=== PATIENT | male | born 1955 | race Caucasian/White ===

== ENCOUNTER 2017-12-07 08:44 | Observation (INO) | payer OTHER ==
[2017-12-05 11:25] VITALS: BP 144/83
[2017-12-05 11:29] LABS: BASOPHILS % (AUTO) 0.9 % (0.0-5.0); EOSINOPHILS % (AUTO) 2.7 % (0.0-8.0); HEMATOCRIT 45.1 % (42-54); LYMPHOCYTES % (AUTO) 24.2 % (21.0-51.0); MEAN CORPUSCULAR HEMOGLOBIN 32.2 pg (27.0-33.0); MEAN CORPUSCULAR HGB CONC 34.2 g/dL (32.0-36.0); MEAN CORPUSCULAR VOLUME 94.2 fL (79-99); MONOCYTES % (AUTO) 10.2 % (3.0-13.0); PLATELET COUNT (AUTO) 188 K/uL (130-400); RED BLOOD CELL COUNT(AUTO) 4.79 MIL/uL (4.50-6.20); RED CELL DISTRIBUTION WIDTH 13.8 % (11.0-15.5); WHITE BLOOD COUNT (AUTO) 7.1 K/uL (4.8-10.8)
[2017-12-05 11:35] LABS: CREATININE 1.2 mg/dL (0.5-1.5); POTASSIUM 4.2 mmol/L (3.5-5.1)
[2017-12-05 11:56] LABS: PARTIAL THROMBOPLASTIN TIME 28.2 SEC (26.3-35.5); PROTHROMBIN TIME 10.5 SEC (9.6-11.6)
[2017-12-07] VITALS (9 sets, daily range): BP systolic 109–157; BP diastolic 52–93
[~2017-12-07] VITALS: Ht 182.9 cm; Wt 164.2 kg
[2017-12-07] MEDS: CEFAZOLIN SODIUM 1 GM VIAL IVP SCH (05:00)
[~2017-12-07 08:44] MED LIST: APIX5TAB PO; LOSA1TAB54 PO; METO50TA18 PO; MULT-1203 PO; RIVA20TA PO; ROSU20TA PO; TEST90SO TD
[2017-12-07] MEDS ORDERED: SODIUM CHLORIDE 0.9% 1000ML 1,000 ML IV ONE (11:07)
[2017-12-07] MEDS ORDERED: GLUC-114 PO (11:30)
[2017-12-07] MEDS ORDERED: BUPIVACAINE/PF 0.25% 50ML VIAL IJ ONE (12:33)
[2017-12-07] MEDS ORDERED: ISOVUE-370 50ML VIAL IV ONE (12:33)
[2017-12-07] MEDS ORDERED: LIDOCAINE HCL 2% 20ML ONE (12:33)
[2017-12-07] MEDS ORDERED: CEFAZOLIN SODIUM 1 GM VIAL ONE (13:05)
[2017-12-07] MEDS ORDERED: MEPERIDINE-PF 25 MG/ML SYG ONE ×5 (13:14→14:14)
[2017-12-07] MEDS ORDERED: MIDAZOLAM HCL 1 MG/ML 2ML VIAL ONE ×4 (13:14→14:14)
[2017-12-07] MEDS ORDERED: ISOVUE-300 100 ML VIAL IV ONE (13:35)
[2017-12-07] MEDS ORDERED: TEMAZEPAM 30 MG CAP PO PRN (15:15)
[2017-12-07] MEDS ORDERED: ACETAMINOPHEN-CODEINE 300/30MG TAB PO PRN (15:15)
[2017-12-07] MEDS ORDERED: ONDANSETRON HCL 4 MG/2 ML VIAL IV PRN (15:15)
[2017-12-07] MEDS ORDERED: ACETAMINOPHEN 325 MG TAB PO PRN (15:15)
[2017-12-07] MEDS: ACETAMINOPHEN-CODEINE 300/30MG TAB PO PRN ×2 (17:01→22:38)
[2017-12-07] MEDS ORDERED: ATORVASTATIN CALCIUM 40 MG TABLET PO SCH (21:00)
[2017-12-07] MEDS: METOPROLOL TARTRATE 50 MG TAB PO SCH (22:06)
[2017-12-07] MEDS: GLUCOSAMINE-CHONDROITIN PO SCH (22:09)
[2017-12-08 04:00] VITALS: BP 162/102
[2017-12-08] MEDS: ACETAMINOPHEN-CODEINE 300/30MG TAB PO PRN ×2 (04:14→13:52)
[2017-12-08] MEDS: CEFAZOLIN SODIUM 1 GM VIAL IVP SCH (04:27)
[2017-12-08 08:15] VITALS: BP 119/73
[2017-12-08] MEDS ORDERED: LOSARTAN/HYDROCHLOROTHIAZIDE 50-12.5MG TABLET PO SCH (09:00)
[2017-12-08] MEDS ORDERED: TESTOSTERONE 30 MG TD SCH (09:00)
[2017-12-08] MEDS: METOPROLOL TARTRATE 50 MG TAB PO SCH (09:05)
[2017-12-08] MEDS: GLUCOSAMINE-CHONDROITIN PO SCH (09:05)
[2017-12-08 12:02] VITALS: BP 127/83
[2017-12-08] MEDS ORDERED: METO50 PO (12:08)
== END 2017-12-08 15:08 | disposition home or self-care (01) ==
LOC: DAH 08:44 → DAHIP 08:45 → DAH 08:45 → 4CH 16:41
PROVIDERS: ADMIT Internal Medicine Cardiovascular Disease; ATTEND Internal Medicine Cardiovascular Disease
DX: I48.91 Unspecified atrial fibrillation (principal); G47.30 Sleep apnea, unspecified; M10.9 Gout, unspecified; E66.01 Morbid (severe) obesity due to excess calories; I25.10 Atherosclerotic heart disease of native coronary artery without angina pectoris; Z79.01 Long term (current) use of anticoagulants; Z16.24 Resistance to multiple antibiotics; I10 Essential (primary) hypertension
CPT/HCPCS: 33207; 36415; 71045; 80048; 82948; 85025; 85610; 85730; 93005 ×2; 93619; 93650; A4649; C1732; C1786; C1894; C1898; G0378 ×30; J0690; J1644; J2175 ×5; J2250 ×4; J3490 ×2; J7030; Q9967; 99156; 99157

== ENCOUNTER 2021-03-17 15:50 | Emergency (ER) | payer MEDICARE, OTHER ==
[~2021-03-17] VITALS: Ht 182.9 cm; Wt 155.1 kg
[~2021-03-17 15:50] MED LIST changes: +GLUC-114 PO; +METO50 PO; -METO50TA18 PO; -RIVA20TA PO; -ROSU20TA PO; +ROSU20TA23 PO
[2021-03-17] MEDS ORDERED: ONDANSETRON 4MG INJ IVP ONE (16:30)
[2021-03-17] MEDS ORDERED: MORPHINE 4 MG SYG IV ONE (16:30)
[2021-03-17 16:43] LABS: BASOPHILS % (AUTO) 0.4 % (0.0-5.0); EOSINOPHILS % (AUTO) 1.7 % (0.0-8.0); HEMATOCRIT 39.9 % (42-54); LYMPHOCYTES % (AUTO) 14.8 % (21.0-51.0); MEAN CORPUSCULAR HEMOGLOBIN 31.5 pg (27.0-33.0); MEAN CORPUSCULAR HGB CONC 33.1 g/dL (32.0-36.0); MEAN CORPUSCULAR VOLUME 95.2 fL (79-99); NEUTROPHILS % (AUTO) 74.8 % (40.0-77.0); PLATELET COUNT (AUTO) 162 K/uL (130-400); RED BLOOD CELL COUNT(AUTO) 4.19 MIL/uL (4.50-6.20); RED CELL DISTRIBUTION WIDTH 14.2 % (11.0-15.5); WHITE BLOOD COUNT (AUTO) 8.9 K/uL (4.8-10.8)
[2021-03-17 16:54] LABS: INR 1.13 (0.85-1.15); PROTHROMBIN TIME 12.2 SEC (9.6-11.6)
[2021-03-17 16:55] LABS: PARTIAL THROMBOPLASTIN TIME 32.6 SEC (26.3-35.5)
[2021-03-17 17:02] VITALS: BP 131/64
[2021-03-17 17:03] LABS: B-TYPE NATRIURETIC PEPTIDE 131 pg/mL (0-100)
[2021-03-17 17:08] LABS: APPEARANCE,URINE Clear (CLEAR); BILIRUBIN,URINE Negative (NEGATIVE); COLOR,URINE Yellow (YELLOW); GLUCOSE, URINE (UA) >=1000 mg/dL (NEGATIVE); KETONES,URINE Negative (NEGATIVE); LEUKOCYTE ESTERASE ,URINE Negative (NEGATIVE); NITRATE,URINE Negative (NEGATIVE); OCCULT BLOOD,URINE Negative (NEGATIVE); PROTEIN,URINE Negative (NEGATIVE)
[2021-03-17 17:09] LABS: ALBUMIN 3.3 g/dL (3.5-5.0); BILIRUBIN,TOTAL 0.7 mg/dL (0.2-1.0); CREATININE 1.2 mg/dL (0.5-1.5); POTASSIUM 4.1 mmol/L (3.5-5.1); TOTAL PROTEIN, SERUM 6.9 g/dL (6.0-8.3)
[2021-03-17 17:18] LABS: BACTERIA,URINE Rare /HPF (None Seen); RBC,URINE None Seen /HPF (0-1); SQUAMOUS EPITHELIAL CELL,UR 0-2 /HPF (0-2); WBC,URINE 0-1 /HPF (0-1)
[2021-03-17 18:14] VITALS: BP 153/80
[2021-03-17] MEDS ORDERED: MORPHINE 2 MG SYG IVP ONE (18:30)
[2021-03-17] MEDS ORDERED: MORPHINE 2 MG SYG ONE (18:33)
== END 2021-03-17 19:23 | disposition home or self-care (01) ==
LOC: EDH 15:50
DX: S80.12XA Contusion of left lower leg, initial encounter (principal); I10 Essential (primary) hypertension; E11.9 Type 2 diabetes mellitus without complications; E78.00 Pure hypercholesterolemia, unspecified; Z79.01 Long term (current) use of anticoagulants; Z79.899 Other long term (current) drug therapy; X58.XXXA Exposure to other specified factors, initial encounter; Y93.89 Activity, other specified; Y92.89 Other specified places as the place of occurrence of the external cause; Y99.8 Other external cause status
CPT/HCPCS: 36415; 71045; 80053; 81001; 82550; 83880; 84484; 85025; 85610; 85730; 93971; 96374; 96375; 96376; 99285; J2270; J2405

== ENCOUNTER 2021-03-31 17:21 | Emergency (ER) | payer MEDICARE ==
[~2021-03-31] VITALS: Ht 182.9 cm; Wt 154.2 kg
[2021-03-31 20:56] LABS: EOSINOPHILS % (AUTO) 2.5 % (0.0-8.0); HEMATOCRIT 40.4 % (42-54); LYMPHOCYTES % (AUTO) 23.4 % (21.0-51.0); MEAN CORPUSCULAR HGB CONC 32.9 g/dL (32.0-36.0); MEAN CORPUSCULAR VOLUME 97.1 fL (79-99); MONOCYTES % (AUTO) 9.8 % (3.0-13.0); PLATELET COUNT (AUTO) 283 K/uL (130-400); RED BLOOD CELL COUNT(AUTO) 4.16 MIL/uL (4.50-6.20); RED CELL DISTRIBUTION WIDTH 14.8 % (11.0-15.5); WHITE BLOOD COUNT (AUTO) 6.9 K/uL (4.8-10.8)
[2021-03-31 21:06] LABS: POTASSIUM 3.9 mmol/L (3.5-5.1)
[2021-03-31 21:11] LABS: ALBUMIN 3.6 g/dL (3.5-5.0); BILIRUBIN,TOTAL 0.7 mg/dL (0.2-1.0); TOTAL PROTEIN, SERUM 7.7 g/dL (6.0-8.3)
[2021-03-31] MEDS ORDERED: METH4TAB3 PO (22:16)
[2021-03-31 22:32] VITALS: BP 148/88
== END 2021-03-31 22:43 | disposition home or self-care (01) ==
LOC: EDH 17:21
DX: S80.12XA Contusion of left lower leg, initial encounter (principal); M71.22 Synovial cyst of popliteal space [Baker], left knee; E78.00 Pure hypercholesterolemia, unspecified; E11.9 Type 2 diabetes mellitus without complications; I10 Essential (primary) hypertension; I48.91 Unspecified atrial fibrillation; Z79.01 Long term (current) use of anticoagulants; Z95.0 Presence of cardiac pacemaker; Z79.899 Other long term (current) drug therapy; X58.XXXA Exposure to other specified factors, initial encounter; Y93.89 Activity, other specified; Y92.89 Other specified places as the place of occurrence of the external cause; Y99.8 Other external cause status
CPT/HCPCS: 36415; 76882; 80053; 85025; 93926

== ENCOUNTER 2022-04-26 05:49 | Day surgery (SDC) | payer MEDICARE ==
[2022-04-22 13:43] LABS: BASOPHILS % (AUTO) 0.6 % (0.0-5.0); EOSINOPHILS % (AUTO) 2.6 % (0.0-8.0); HEMATOCRIT 48.6 % (42-54); LYMPHOCYTES % (AUTO) 25.7 % (21.0-51.0); MEAN CORPUSCULAR HGB CONC 33.3 g/dL (32.0-36.0); MONOCYTES % (AUTO) 8.8 % (3.0-13.0); PLATELET COUNT (AUTO) 175 K/uL (130-400); RED BLOOD CELL COUNT(AUTO) 5.06 MIL/uL (4.50-6.20); RED CELL DISTRIBUTION WIDTH 13.6 % (11.0-15.5); WHITE BLOOD COUNT (AUTO) 6.8 K/uL (4.8-10.8)
[2022-04-22 13:53] LABS: INR 1.01 (0.85-1.15)
[2022-04-22 13:54] LABS: PARTIAL THROMBOPLASTIN TIME 30.8 SEC (26.3-35.5)
[2022-04-22 13:55] LABS: CREATININE 1.3 mg/dL (0.5-1.5); POTASSIUM 4.4 mmol/L (3.5-5.1)
[2022-04-22 14:16] LABS: B-TYPE NATRIURETIC PEPTIDE 73 pg/mL (0-100)
[2022-04-22 15:01] LABS: APPEARANCE,URINE CLEAR (CLEAR); BILIRUBIN,URINE NEGATIVE (NEGATIVE); COLOR,URINE LIGHT-YELLOW (YELLOW); GLUCOSE, URINE (UA) >=1000 mg/dL (NEGATIVE); KETONES,URINE NEGATIVE (NEGATIVE); LEUKOCYTE ESTERASE ,URINE NEGATIVE Leu/uL (NEGATIVE); NITRATE,URINE NEGATIVE (NEGATIVE); OCCULT BLOOD,URINE NEGATIVE (NEGATIVE); PROTEIN,URINE NEGATIVE (NEGATIVE); UROBILINOGEN,URINE 0.2 mg/dL (0.2-1.0)
[2022-04-22 15:09] LABS: WBC,URINE 0-1 /HPF (0-1)
[2022-04-25 11:51] VITALS: BP 158/86
[2022-04-26] VITALS (11 sets, daily range): BP systolic 106–144; BP diastolic 69–90
[~2022-04-26] VITALS: Ht 182.9 cm; Wt 139.6 kg
[~2022-04-26 05:49] MED LIST changes: +0.9% NACL 500ML IV.SOLN 500 ML IV SCH; +CLON0.1T PO; +COQ10 PO; +FLUT1BLS3 IH; -GLUC-114 PO; +LABE300T4 PO; -LOSA1TAB54 PO; -METO50 PO; -MULT-1203 PO; +NITR0.4T50 SL; +OLME40TA18 PO; +OZEMPIC SQ; +TEST5GEL18 TD; -TEST90SO TD
[2022-04-26] MEDS ORDERED: 0.9%NACL 1000ML 1,000 ML IV ONE (06:16)
[2022-04-26] MEDS ORDERED: IOHEXOL 350 MG/ML 100ML INFUS..BTL IV ONE (07:16)
[2022-04-26] MEDS ORDERED: NITROGLYCERIN 50MG VIAL ONE (07:16)
[2022-04-26] MEDS ORDERED: IOHEXOL-350 50ML VIAL IV ONE (07:16)
[2022-04-26] MEDS ORDERED: HEPARIN 10,000 UNIT/10ML (1,000 UNIT/ML) VIAL ONE (07:16)
[2022-04-26] MEDS ORDERED: FENTANYL CITRATE PF 50 MCG/1 ML 2ML VIAL ONE (07:17)
[2022-04-26] MEDS ORDERED: MIDAZOLAM HCL 1 MG/ML 2ML VIAL ONE (07:17)
[2022-04-26] MEDS ORDERED: HYDRALAZINE 20MG/ML VIAL ONE (07:51)
[2022-04-26] MEDS ORDERED: DEXTROSE 50%-WATER 50 ML DISP.SYRIN IV PRN (08:30)
[2022-04-26] MEDS ORDERED: GLUCAGON 1MG KIT 1 MG ML IM PRN (08:30)
== END 2022-04-26 12:00 | disposition home or self-care (01) ==
LOC: DAH 05:49
PROVIDERS: ATTEND Internal Medicine Cardiovascular Disease
DX: I25.118 Atherosclerotic heart disease of native coronary artery with other forms of angina pectoris (principal); I11.0 Hypertensive heart disease with heart failure; I50.32 Chronic diastolic (congestive) heart failure; E11.51 Type 2 diabetes mellitus with diabetic peripheral angiopathy without gangrene; G47.33 Obstructive sleep apnea (adult) (pediatric); I48.19 Other persistent atrial fibrillation; E66.9 Obesity, unspecified; I87.2 Venous insufficiency (chronic) (peripheral); I25.2 Old myocardial infarction; E78.5 Hyperlipidemia, unspecified; Z90.89 Acquired absence of other organs; Z98.84 Bariatric surgery status; Z98.890 Other specified postprocedural states; Z95.0 Presence of cardiac pacemaker; Z68.41 Body mass index [BMI] 40.0-44.9, adult; Z79.01 Long term (current) use of anticoagulants; Z79.899 Other long term (current) drug therapy
CPT/HCPCS: 80048; 83880; 85025; 85610; 85730; 81001; 36415; 71045; 93005; 93458; 82948 ×2; C1894; C1760; J7030; J0360; J1644; J3490; Q9967; A4215; A4222; A4221; A4663; A4216; A4606; Q9965; A4223 ×3; A4554; J2250; J3010

== ENCOUNTER 2022-07-21 06:29 | Day surgery (SDC) | payer MEDICARE ==
[2022-07-13 10:50] LABS: BASOPHILS % (AUTO) 0.7 % (0.0-5.0); EOSINOPHILS % (AUTO) 3.5 % (0.0-8.0); HEMATOCRIT 47.8 % (42-54); LYMPHOCYTES % (AUTO) 32.6 % (21.0-51.0); MEAN CORPUSCULAR HEMOGLOBIN 32.1 pg (27.0-33.0); MEAN CORPUSCULAR HGB CONC 32.6 g/dL (32.0-36.0); MEAN CORPUSCULAR VOLUME 98.4 fL (79-99); MONOCYTES % (AUTO) 11.2 % (3.0-13.0); NEUTROPHILS % (AUTO) 51.8 % (40.0-77.0); PLATELET COUNT (AUTO) 176 K/uL (130-400); RED BLOOD CELL COUNT(AUTO) 4.86 MIL/uL (4.50-6.20); WHITE BLOOD COUNT (AUTO) 5.7 K/uL (4.8-10.8)
[2022-07-13 10:59] LABS: POTASSIUM 4.6 mmol/L (3.5-5.1)
[2022-07-13 11:47] VITALS: BP 137/87
[~2022-07-21] VITALS: Ht 182.9 cm; Wt 139.0 kg
[2022-07-21] VITALS (17 sets, daily range): BP systolic 131–149; BP diastolic 77–93
[~2022-07-21 06:29] MED LIST changes: -0.9% NACL 500ML IV.SOLN 500 ML IV SCH; +0.9%NACL 1000ML 1,000 ML IV SCH; +CEFAZOLIN SODIUM 2 GM VIAL IVPB PRN; +CEFAZOLIN SODIUM 2 GM VIAL IVPB SCH; -COQ10 PO; -OZEMPIC SQ; +SEMA2PEN SQ; +UBID200C18 PO
[2022-07-21] MEDS ORDERED: LACTATED RINGERS 1000ML 1,000 ML IV ONE (06:38)
[2022-07-21] MEDS ORDERED: CEFAZOLIN SODIUM 1 GM VIAL ONE (06:38)
[2022-07-21] MEDS ORDERED: BUPIVACAINE/PF 0.5% 30ML VIAL ONE (06:39)
[2022-07-21] MEDS ORDERED: LIDOCAINE PF 100MG/5ML (2%) SYRINGE 5ML ONE (07:24)
[2022-07-21] MEDS ORDERED: PROPOFOL 10 MG/ML 20ML VIAL IV ONE (07:25)
[2022-07-21] MEDS ORDERED: FENTANYL CITRATE PF 50 MCG/1 ML 2ML VIAL ONE (07:25)
[2022-07-21] MEDS ORDERED: MIDAZOLAM HCL 1 MG/ML 2ML VIAL ONE (07:25)
[2022-07-21] MEDS ORDERED: ROCURONIUM 10MG/1ML SYR 10 MG/ML ML ONE (07:26)
[2022-07-21] MEDS ORDERED: ONDANSETRON 4MG INJ ONE (08:33)
[2022-07-21] MEDS ORDERED: DEXAMETHASONE SOD PHOSPHATE 10MG/ML 1ML VIAL ONE (08:34)
[2022-07-21] MEDS ORDERED: BUPIVACAINE/PF 0.5% 30ML VIAL INJ ONE (08:36)
[2022-07-21] MEDS ORDERED: GLYCOPYRROLATE 1 MG/5 ML SYRINGE ONE (09:04)
[2022-07-21] MEDS ORDERED: NEOSTIGMINE 5MG/5ML SYR IV ONE (09:04)
[2022-07-21] MEDS ORDERED: SUGAMMADEX SODIUM 200 MG/2 ML VIAL IV ONE (09:17)
== END 2022-07-21 11:10 | disposition home or self-care (01) ==
LOC: DAH 06:29
PROVIDERS: ATTEND Student in an Organized Health Care Education/Training Program
DX: K60.3 Anal fistula (principal); Z20.822 Contact with and (suspected) exposure to COVID-19; K64.8 Other hemorrhoids; I10 Essential (primary) hypertension; J45.909 Unspecified asthma, uncomplicated; E78.5 Hyperlipidemia, unspecified; E11.9 Type 2 diabetes mellitus without complications; Z79.01 Long term (current) use of anticoagulants; Z79.899 Other long term (current) drug therapy; Z98.890 Other specified postprocedural states; Z90.89 Acquired absence of other organs; Z98.84 Bariatric surgery status
CPT/HCPCS: 87426 ×2; 80048; 85025; 36415; 45990; 82948; A4663; A4606; J7120; J3010; J0690; J3490 ×3; J1100; J2710; J2001; J2250; J2704; J2405; A4649; A4930; A4215; A4223; A4222; A4221

== ENCOUNTER 2023-03-02 09:23 | Day surgery (SDC) | payer MEDICARE ==
[2023-02-28 11:28] LABS: BASOPHILS # (AUTO) 0.04 K/uL (0.00-0.20); BASOPHILS % (AUTO) 0.7 % (0.0-5.0); EOSINOPHILS # (AUTO) 0.18 K/uL (0.00-0.70); EOSINOPHILS % (AUTO) 2.9 % (0.0-8.0); IMMATURE GRANULOCYTE ABSOLUTE 0.02 K/uL (0-1); LYMPHOCYTES # (AUTO) 1.6 K/uL (1.0-4.8); LYMPHOCYTES % (AUTO) 25.9 % (21.0-51.0); MEAN CORPUSCULAR HEMOGLOBIN 32.7 pg (27.0-33.0); MEAN CORPUSCULAR HGB CONC 32.6 g/dL (32.0-36.0); MEAN CORPUSCULAR VOLUME 100.4 fL (79-99); MONOCYTES # (AUTO) 0.7 K/uL (0.1-1.0); MONOCYTES % (AUTO) 10.7 % (3.0-13.0); NEUTROPHILS # (AUTO) 3.7 K/uL (1.8-7.7); NEUTROPHILS % (AUTO) 59.5 % (40.0-77.0); PLATELET COUNT (AUTO) 171 K/uL (130-400); RED BLOOD CELL COUNT(AUTO) 4.68 MIL/uL (4.50-6.20); RED CELL DISTRIBUTION WIDTH 13.9 % (11.0-15.5); WHITE BLOOD COUNT (AUTO) 6.2 K/uL (4.8-10.8)
[2023-02-28 11:50] LABS: INR 0.94 (0.85-1.15); PROTHROMBIN TIME 10.9 SEC (9.6-11.6)
[2023-02-28 11:53] VITALS: BP 154/95; PULSE 89; RESP 16
[2023-02-28 11:53] LABS: POTASSIUM 4.5 mmol/L (3.5-5.1)
[~2023-03-02] VITALS: Ht 182.9 cm; Wt 141.7 kg
[~2023-03-02 09:23] MED LIST changes: -0.9%NACL 1000ML 1,000 ML IV SCH; -CEFAZOLIN SODIUM 2 GM VIAL IVPB PRN; -CEFAZOLIN SODIUM 2 GM VIAL IVPB SCH; -CLON0.1T PO; +EMPA25TA PO; -FLUT1BLS3 IH; +GLUC-268 PO; -NITR0.4T50 SL; -OLME40TA18 PO; -ROSU20TA23 PO; +SIMV-46 PO; -TEST5GEL18 TD; +UBID1CAP56 PO; -UBID200C18 PO
[2023-03-02 09:55] VITALS: BP 130/83; PULSE 75; RESP 17
[2023-03-02] MEDS ORDERED: PROPOFOL 10 MG/ML 20ML VIAL IV ONE ×3 (11:03→11:51)
[2023-03-02] MEDS ORDERED: LIDOCAINE PF 100MG/5ML (2%) SYRINGE 5ML ONE (11:04)
[2023-03-02] MEDS ORDERED: 0.9%NACL 1000ML 1,000 ML IV ONE (11:58)
== END 2023-03-02 12:40 | disposition home or self-care (01) ==
LOC: DAH 09:23
PROVIDERS: ATTEND Student in an Organized Health Care Education/Training Program
DX: Z12.11 Encounter for screening for malignant neoplasm of colon (principal); E11.9 Type 2 diabetes mellitus without complications; I10 Essential (primary) hypertension; E78.00 Pure hypercholesterolemia, unspecified; Z88.8 Allergy status to other drugs, medicaments and biological substances; Z95.0 Presence of cardiac pacemaker; Z98.890 Other specified postprocedural states; Z98.84 Bariatric surgery status; Z79.01 Long term (current) use of anticoagulants; Z79.899 Other long term (current) drug therapy
CPT/HCPCS: 80048; 85025; 85610; 85730; 36415; 82948; J7030 ×2; J2001; J2704 ×3; A4620; G0121; A4215 ×2; A4223; A7002; A4222; A4221; A4663; A4606; 45378; J3490

== ENCOUNTER → 2023-10-16 | Outpatient (CLI) | payer MEDICARE | END | disposition home or self-care (01) | LOC: SHCH 07:36 | PROVIDERS: ATTEND Internal Medicine Cardiovascular Disease | DX: I87.1 Compression of vein (principal); I87.2 Venous insufficiency (chronic) (peripheral) | CPT/HCPCS: 93970 ==

== ENCOUNTER → 2023-11-13 | Outpatient (CLI) | payer MEDICARE | END | disposition home or self-care (01) | LOC: SHCH 09:18 | PROVIDERS: ATTEND Internal Medicine Cardiovascular Disease | DX: Z09 Encounter for follow-up examination after completed treatment for conditions other than malignant neoplasm (principal); I87.2 Venous insufficiency (chronic) (peripheral) | CPT/HCPCS: 93971 ==

== ENCOUNTER → 2024-01-08 | Outpatient (CLI) | payer MEDICARE ==
[2024-01-08 12:27] LABS: BASOPHILS # (AUTO) 0.04 K/uL (0.00-0.20); BASOPHILS % (AUTO) 0.7 % (0.0-5.0); EOSINOPHILS # (AUTO) 0.27 K/uL (0.00-0.70); EOSINOPHILS % (AUTO) 4.6 % (0.0-8.0); HEMATOCRIT 47.7 % (42-54); IMMATURE GRANULOCYTE ABSOLUTE 0.01 K/uL (0-1); LYMPHOCYTES # (AUTO) 1.8 K/uL (1.0-4.8); LYMPHOCYTES % (AUTO) 31.2 % (21.0-51.0); MEAN CORPUSCULAR HGB CONC 32.3 g/dL (32.0-36.0); MONOCYTES # (AUTO) 0.6 K/uL (0.1-1.0); MONOCYTES % (AUTO) 10.3 % (3.0-13.0); NEUTROPHILS # (AUTO) 3.1 K/uL (1.8-7.7); PLATELET COUNT (AUTO) 159 K/uL (130-400); RED BLOOD CELL COUNT(AUTO) 4.82 MIL/uL (4.50-6.20); RED CELL DISTRIBUTION WIDTH 14.2 % (11.0-15.5); WHITE BLOOD COUNT (AUTO) 5.8 K/uL (4.8-10.8)
[2024-01-08 12:36] LABS: CREATININE 0.9 mg/dL (0.5-1.3); POTASSIUM 4.5 mmol/L (3.5-5.1)
[2024-01-08 12:45] LABS: INR 1.03 (0.85-1.15); PROTHROMBIN TIME 11.1 SEC (9.6-11.6)
[2024-01-08 12:47] LABS: PARTIAL THROMBOPLASTIN TIME 30.5 SEC (26.3-35.5)
== END | disposition home or self-care (01) ==
LOC: LAB 08:48
PROVIDERS: ATTEND Internal Medicine Cardiovascular Disease
DX: Z01.812 Encounter for preprocedural laboratory examination (principal); I87.2 Venous insufficiency (chronic) (peripheral); I10 Essential (primary) hypertension; I48.91 Unspecified atrial fibrillation; I73.9 Peripheral vascular disease, unspecified
CPT/HCPCS: 36415; 80048; 85025; 85610; 85730

== ENCOUNTER → 2024-02-05 | Outpatient (CLI) | payer MEDICARE ==
[2024-02-05 16:54] LABS: CREATININE 1.1 mg/dL (0.5-1.3); POTASSIUM 4.3 mmol/L (3.5-5.1)
== END | disposition home or self-care (01) ==
LOC: LAB 15:10
PROVIDERS: ATTEND Internal Medicine Cardiovascular Disease
DX: I25.118 Atherosclerotic heart disease of native coronary artery with other forms of angina pectoris (principal)
CPT/HCPCS: 36415; 80048